=== PATIENT | male | born 1980 | race Caucasian/White ===

== ENCOUNTER → 2021-02-18 | Day surgery (SDC) | payer OTHER ==
[~2021-02-18] VITALS: Ht 170.2 cm; Wt 108.9 kg
[~2021-02-18] MED LIST: ADDERALL 10 MG10 MG PO; NORCO 5-325 TA1 EACH PO; NORVASC5 MG PO; PRINIVIL20 MG PO
[2021-02-18 07:54] LABS: BUN/CREAT RATIO (CALC) 15.2 RATIO; CREATININE 0.99 mg/dL (0.67-1.17); POTASSIUM 3.6 mmol/L (3.5-5.1)
== END | disposition home or self-care (01) ==
LOC: FAS 06:58 → EDSEX 08:00
PROVIDERS: Anesthesiology
DX: K43.6 Other and unspecified ventral hernia with obstruction, without gangrene (principal); M10.9 Gout, unspecified; I10 Essential (primary) hypertension; E78.00 Pure hypercholesterolemia, unspecified; E66.01 Morbid (severe) obesity due to excess calories; Z68.41 Body mass index [BMI] 40.0-44.9, adult; Z79.899 Other long term (current) drug therapy
CPT/HCPCS: 36415; 80048; C1781; J0690; J1170; J1885; J2250; J2405; J2704; J2710; J3010; J3490; J7120